=== PATIENT | female | born 1970 | race Two or more races ===

== ENCOUNTER 2017-05-05 15:27 | Emergency (ER) | payer OTHER ==
[~2017-05-05] VITALS: Ht 154.9 cm; Wt 59.0 kg
[2017-05-05] MEDS ORDERED: XOPENEX HFA15 GM (15:35)
== END 2017-05-05 18:15 | disposition home or self-care (01) ==
LOC: ER 15:27
DX: B34.9 Viral infection, unspecified (principal); N39.0 Urinary tract infection, site not specified

== ENCOUNTER 2017-07-02 11:24 | Outpatient (CLI) | payer OTHER ==
[~2017-07-02 11:24] MED LIST: XOPENEX HFA15 GM
== END 2017-07-02 12:36 | disposition home or self-care (01) ==
LOC: SONOGRAMA 11:24
DX: N60.19 Diffuse cystic mastopathy of unspecified breast (principal); N64.4 Mastodynia

== ENCOUNTER 2018-01-02 18:17 | Emergency (ER) | payer OTHER ==
[~2018-01-02] VITALS: Ht 154.9 cm; Wt 57.6 kg
[2018-01-02] MEDS ORDERED: BUDESONIDE0.5 MG/2 M (19:20)
[2018-01-02] MEDS ORDERED: IPRATROPIU0.2 MG/1 M (19:21)
== END 2018-01-02 23:22 | disposition home or self-care (01) ==
LOC: ER 18:17
DX: J45.998 Other asthma (principal)

== ENCOUNTER 2018-02-04 09:25 | Outpatient (CLI) | payer OTHER ==
[~2018-02-04 09:25] MED LIST changes: +BUDESONIDE0.5 MG/2 M; +IPRATROPIU0.2 MG/1 M
== END 2018-02-04 09:41 | disposition home or self-care (01) ==
LOC: MAMO-SONO 09:25
DX: Z12.31 Encounter for screening mammogram for malignant neoplasm of breast (principal); N60.11 Diffuse cystic mastopathy of right breast; N60.12 Diffuse cystic mastopathy of left breast

== ENCOUNTER 2018-05-09 09:37 | Outpatient (CLI) | payer OTHER | END 2018-05-09 10:43 | disposition home or self-care (01) | LOC: SONOGRAMA 09:37 | DX: E04.1 Nontoxic single thyroid nodule (principal) ==

== ENCOUNTER → 2018-08-01 | Outpatient (CLI) | payer OTHER | END | disposition home or self-care (01) | LOC: RAD 501 15:47 | DX: M54.2 Cervicalgia (principal); M25.511 Pain in right shoulder ==

== ENCOUNTER 2018-10-12 09:42 | Outpatient (CLI) | payer OTHER | END 2018-10-12 09:43 | disposition home or self-care (01) | LOC: RAD 09:42 | DX: I10 Essential (primary) hypertension (principal) ==

== ENCOUNTER 2019-06-20 10:20 | Outpatient (CLI) | payer OTHER | END 2019-06-20 10:24 | disposition home or self-care (01) | LOC: MAMO-SONO 10:20 | DX: Z12.31 Encounter for screening mammogram for malignant neoplasm of breast (principal); Z87.898 Personal history of other specified conditions; N63.10 Unspecified lump in the right breast, unspecified quadrant; N63.20 Unspecified lump in the left breast, unspecified quadrant; N64.4 Mastodynia; N60.11 Diffuse cystic mastopathy of right breast ==

== ENCOUNTER 2021-03-11 14:41 | Outpatient (CLI) | payer OTHER | END 2021-03-11 14:59 | disposition home or self-care (01) | LOC: RAD 14:41 | PROVIDERS: ATTEND Orthopaedic Surgery | DX: M25.511 Pain in right shoulder (principal) ==

== ENCOUNTER 2021-10-08 13:56 | Outpatient (CLI) | payer OTHER | END 2021-10-08 13:57 | disposition home or self-care (01) | LOC: MAMO-SONO 13:56 | PROVIDERS: ATTEND Specialist | DX: E03.9 Hypothyroidism, unspecified (principal); E04.1 Nontoxic single thyroid nodule; N60.11 Diffuse cystic mastopathy of right breast; N60.12 Diffuse cystic mastopathy of left breast; Z12.31 Encounter for screening mammogram for malignant neoplasm of breast ==

== ENCOUNTER 2021-11-17 15:31 | Emergency (ER) | payer OTHER ==
[~2021-11-17] VITALS: Ht 152.4 cm; Wt 55.8 kg
[2021-11-17] MEDS ORDERED: SINGULAIR4 M1 PO (16:13)
[2021-11-17] MEDS ORDERED: ZYRTEC10 M3 PO (16:13)
[2021-11-17] MEDS ORDERED: PROTONIX20 MG PO (16:14)
[2021-11-17] MEDS ORDERED: NEURONTIN300 MG PO (16:14)
[2021-11-17] MEDS ORDERED: DICLOFENAC SODI75 MG PO (19:07)
== END 2021-11-17 19:13 | disposition home or self-care (01) ==
LOC: ER 15:31
DX: N83.201 Unspecified ovarian cyst, right side (principal); M54.50 Low back pain, unspecified; Z20.822 Contact with and (suspected) exposure to COVID-19

== ENCOUNTER 2023-01-21 11:34 | Outpatient (CLI) | payer OTHER ==
[~2023-01-21 11:34] MED LIST changes: +DICLOFENAC SODI75 MG PO; +NEURONTIN300 MG PO; +PROTONIX20 MG PO; +SINGULAIR4 M1 PO; +ZYRTEC10 M3 PO
== END 2023-01-21 11:43 | disposition home or self-care (01) ==
LOC: MAMO-SONO 11:34
PROVIDERS: ATTEND Obstetrics & Gynecology Maternal & Fetal Medicine
DX: Z12.31 Encounter for screening mammogram for malignant neoplasm of breast (principal); N63.0 Unspecified lump in unspecified breast; N64.4 Mastodynia; N60.11 Diffuse cystic mastopathy of right breast

== ENCOUNTER 2023-04-16 07:37 | Outpatient (CLI) | payer OTHER | END 2023-04-16 07:52 | disposition home or self-care (01) | LOC: RX STUDY 07:37 | DX: K21.00 Gastro-esophageal reflux disease with esophagitis, without bleeding (principal); R10.13 Epigastric pain ==

== ENCOUNTER 2024-05-11 13:47 | Outpatient (CLI) | payer OTHER | END 2024-05-11 13:53 | disposition home or self-care (01) | LOC: MAMO-SONO 13:47 | PROVIDERS: ATTEND Obstetrics & Gynecology Maternal & Fetal Medicine | DX: N63.0 Unspecified lump in unspecified breast (principal); N64.4 Mastodynia; N60.11 Diffuse cystic mastopathy of right breast ==